=== PATIENT | female | born 1945 | race Caucasian/White ===

== ENCOUNTER 2019-11-29 16:39 | Emergency (ER) | payer BC, MEDICARE ==
[2019-11-29] MEDS ORDERED: 0.9 % SODIUM CHLORIDE 1000ML 1,000 ML IV ONE (16:57)
[2019-11-29] MEDS ORDERED: ASPIRIN 81 MG CHEWABLE TABLET PO ONE (16:57)
--- NOTE | 2019-11-29 17:07 | Emergency Department Record ---
History of Present Illness - General Chief Complaint: Chest Pain Stated Complaint: CHEST PAIN Time Seen by Provider: 11/29/19 16:44 Source: Patient, RN notes reviewed Mode of Arrival: Ambulatory - History of Present Illness Initial Comments: chest heaviness for 3 days and SOB now when she was walking up the stairs. 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 She has been working out and silver sneakers and has some bilateral groin pain. PMH of atrial fib and they wanted fernandez do cardioversion but not done. She canciled it and she is going in and out of atrial fib. No IA's She became SOB when she came up the stairs today and that is why she came in. Primary is Dr Rogel with [facility] Quality: Heaviness Consistency: Constant Improves With: Nothing Worsens With: Nothing - Related Data Home Medications Medication Instructions Recorded Confirmed Last Taken Metoprolol Succinate 50 mg PO DAILY 11/29/19 11/29/19 Unknown Allergies Allergy/AdvReac Type Severity Reaction Status Date / Time No Known Drug Allergies Allergy Verified 11/29/19 16:47 Travel Screening - Travel/Exposure Within Last 30 Days Have you traveled within the last 30 days?: No Review of Systems Reviewed: No additional complaints except as noted below Constitutional: Reports: As per HPI. Denies: Chills, Fever, Malaise, Night sweats, Weakness, Weight change Eyes: Reports: As per HPI. Denies: Eye discharge, Eye pain, Photophobia, Vision change ENT: Reports: As per HPI. Denies: Congestion, Dental pain, Ear pain, Epistaxis, Hearing loss, Throat pain Respiratory: Reports: As per HPI. Denies: Cough, Dyspnea, Hemoptysis, Stridor, Wheezes Cardiovascular: Reports: As per HPI, Arrhythmia, Chest pain, Dyspnea on exertion. Denies: Edema, Murmurs, Orthopnea, Palpitations, Paroxysmal nocturnal dyspnea, Rheumatic Fever, Syncope Endocrine: Reports: As per HPI. Denies: Fatigue, Heat or cold intolerance, Polydipsia, Polyuria Gastrointestinal: Reports: As per HPI. Denies: Abdominal pain, Constipation, Diarrhea, Hematemesis, Hematochezia, Melena, Nausea, Vomiting Genitourinary: Reports: As per HPI. Denies: Abnormal menses, Discharge, Dyspareunia, Dysuria, Frequency, Hematuria, Incontinence, Retention, Urgency Musculoskeletal: Reports: As per HPI. Denies: Arthralgia, Back pain, Gout, Joint swelling, Myalgia, Neck pain Skin: Reports: As per HPI. Denies: Bruising, Change in color, Change in hair/nails, Lesions, Pruritus, Rash Neurological: Reports: As per HPI. Denies: Abnormal gait, Confusion, Headache, Numbness, Paresthesias, Seizure, Tingling, Tremors, Vertigo, Weakness Psychiatric: Reports: As per HPI. Denies: Anxiety, Auditory hallucinations, Depression, Homicidal thoughts, Suicidal thoughts, Visual hallucinations Hematological/Lymphatic: Reports: As per HPI. Denies: Anemia, Blood Clots, Easy bleeding, Easy bruising, Swollen glands Past Medical History - SOCIAL HISTORY Smoking Status: Never smoker Alcohol Use: None Drug Use: None - RESPIRATORY Hx Respiratory Disorders: No - CARDIOVASCULAR Hx Cardio Disorders: Yes Hx Irregular Heartbeat: Yes (afib) - NEURO Hx Neuro Disorders: No - GI Hx GI Disorders: No - Hx Genitourinary Disorders: No - ENDOCRINE Hx Endocrine Disorders: Yes Hx Thyroid Disease: Yes - MUSCULOSKELETAL Hx Musculoskeletal Disorders: No - PSYCH Hx Psych Problems: Yes Hx Anxiety: Yes Hx Depression: Yes - HEMATOLOGY/ONCOLOGY Hx Hematology/Oncology Disorders: No Family Medical History Any Significant Family History?: No Physical Exam - General General Appearance: Alert, Oriented x3, Cooperative, No acute distress - Head Head exam: Normal inspection - Eye Eye exam: Normal appearance, PERRL Pupils: Normal accommodation - ENT ENT exam: Normal exam, Mucous membranes moist, Normal external ear exam, Normal orophraynx, TM's normal bilaterally Ear exam: Normal external inspection. negative: External canal tenderness Nasal Exam: Normal inspection. negative: Discharge, Sinus tenderness Mouth exam: Normal external inspection, Tongue normal Teeth exam: Normal inspection. negative: Dental caries Throat exam: Normal inspection. negative: Tonsillar erythema, Tonsillar exudate - Neck Neck exam: Normal inspection, Full ROM. negative: Tenderness - Respiratory Respiratory exam: Normal lung sounds bilaterally. negative: Respiratory distress - Cardiovascular Cardiovascular Exam: Regular rate, Normal rhythm, Normal heart sounds - GI/Abdominal GI/Abdominal exam: Soft, Normal bowel sounds. negative: Tenderness - Rectal Rectal exam: Deferred - exam: Deferred - Extremities Extremities exam: Normal inspection, Full ROM, Normal capillary refill. negative: Tenderness - Back Back exam: Reports: Normal inspection, Full ROM. Denies: Muscle spasm, Rash noted, Tenderness - Neurological Neurological exam: Alert, Normal gait, Oriented X3, Reflexes normal - Psychiatric Psychiatric exam: Normal affect, Normal mood - Skin Skin exam: Dry, Intact, Normal color, Warm Course Vital Signs 11/29/19 16:42 Temperature 98.0 F Pulse Rate 64 Respiratory 22 Rate Blood Pressure 135/94 Pulse Ox 97 - Reevaluation(s) Reevaluation #1: While in the ED went into atrial fib and she said she is going in and out of atrial fib. 11/29/19 17:20 Reevaluation #2: discussed case with Dr. Morales and he accepted the patient and will transfer to [facility]. 11/29/19 17:51 Reevaluation #3: Discussed case with patient and informed her of being transfered to [facility]. 11/29/19 17:57 Reevaluation #4: breathing better 11/29/19 18:00 Medical Decision Making - Data Complexity MDM Data: Labs Ordered and/or Reviewed, EKG Ordered and/or Reviewed (NSR no acut e changes) - Lab Data Result diagrams: 11/29/19 16:45 11/29/19 16:45 Disposition Clinical Impression: Chest pain Qualifiers: Chest pain type: unspecified Qualified Code(s): R07.9 - Chest pain, unspecified CHF (congestive heart failure) Qualifiers: Heart failure type: systolic Heart failure chronicity: acute Qualified Code(s): I50.21 - Acute systolic (congestive) heart failure Disposition: Acute Care Hospital Transfer Condition: (2) Stable Forms: Patient Portal Access Time of Disposition: 17:51 Quality - Quality Measures Quality Measures: N/A - Blood Pressure Screening Does Patient Have Any of the Following: No Blood Pressure Classification: Hypertensive Reading Systolic Measurement: 135 Diastolic Measurement: 94 Screening for High Blood Pressure: < Pre-Hypertensive BP, F/U Documented > [[id number]] Pre-Hypertensive Follow-up Interventions: Referral to alternative/primary care provider.
[2019-11-29 17:13] LABS: ABSOLUTE NEUTROPHIL COUNT 5.84; BASO % 0.9 % (0-6); EOS % 3.7 % (0-6); GRAN % 62.7 % (47-80); HEMATOCRIT 38.2 % (35.0-47.0); HEMOGLOBIN 12.3 gm/dl (11.6-16.0); MEAN CELL VOLUME 91.4 fl (81-97); MEAN CORPUSCULAR HEMOGLOBIN 29.4 pg (27-33); MEAN CORPUSCULAR HGB CONC 32.2 g/dl (32-36); MEAN PLATELET VOLUME 9.1 fl (7.4-10.4); MONO % 4.7 % (0-9); PLATELET COUNT 304 K/uL (130-400); RED BLOOD COUNT 4.18 M/uL (3.80-5.40); RED CELL DISTRIBUTION WIDTH 12.2 % (11.5-14.5); WHITE BLOOD COUNT W/O DIFF 9.3 K/uL (4.2-12.2)
[2019-11-29 17:21] LABS: BLOOD UREA NITROGEN 17 mg/dL (8-23); CREATININE 0.8 mg/dL (0.5-0.9); EST GLOMERULAR FILTRATION RATE > 60 mL/min
[2019-11-29 17:23] LABS: GLUCOSE,RANDOM 108 mg/dL (74-109)
[2019-11-29 17:29] LABS: INR 1.2; PARTIAL THROMBOPLASTIN TIME 34.9 SECONDS (24.5-39.1); PROTHROMBIN TIME (PATIENT) 12.1 SECONDS (9.5-12.1)
--- NOTE | 2019-11-29 17:31 | RADIOLOGY REPORT ---
EXAMINATION: Single View Chest EXAM DATE: 11/29/2019 5:20 PM TECHNIQUE: Single view chest INDICATION: Acute chest pain, shortness of breath and difficulty breathing for one day COMPARISON: None. FINDINGS: Single AP view. Mild prominence of the interstitial lung markings bilaterally. This may represent margaret ma or other acute interstitial infiltrates. No focal airspace infiltrates. The heart and mediastinum have a normal appearance. Right humeral head surgical anchor noted. IMPRESSION: Mild prominence of the interstitial lung markings bilaterally, as above. Please correlate clinically. Dictated by: Gurmeet Rosario MD on 11/29/2019 5:28 PM. .
[2019-11-29] MEDS ORDERED: FUROSEMIDE IV 20MG/2ML VIAL IVP ONE (17:33)
== END 2019-11-29 18:58 | disposition short-term general hospital (02) ==
LOC: ER 16:39
DX: I50.21 Acute systolic (congestive) heart failure (principal); I48.91 Unspecified atrial fibrillation; R06.02 Shortness of breath; R07.89 Other chest pain
CPT/HCPCS: 71045; 80048; 83880; 84484; 85025; 85379; 85610; 85730; 93005; 93010; 96374; 99285; J1940